=== PATIENT | female | born 1960 | race Caucasian/White ===

== ENCOUNTER 2022-01-22 08:31 | Day surgery (SDC) | payer OTHER ==
[~2022-01-22 08:31] MED LIST: CLON.5 PO; GINGER ROOT550 MG PO; HYOS.125 SL; NEBI5 PO; Papaya Enzyme1 EAC1 PO; TRAACE PO
== END 2022-01-26 23:09 | disposition home or self-care (01) ==
LOC: MOI US 08:31 → MOI MAM 09:30 → MOI US 09:30
PROVIDERS: Family Medicine
DX: C50.911 Malignant neoplasm of unspecified site of right female breast (principal); Z20.822 Contact with and (suspected) exposure to COVID-19
CPT/HCPCS: 19083; 77065; 87426; 87811; 88305; 88360; A4648

== ENCOUNTER 2022-03-03 08:08 | Day surgery (SDC) | payer OTHER ==
[~2022-03-03] VITALS: Ht 177.8 cm; Wt 97.8 kg
--- NOTE | 2022-03-03 10:59 | NUR ---
03/03/22 1059 Amanda Coto 3ML INDIGO CARMINE USED FOR POLYP REMOVAL
--- NOTE | 2022-03-03 11:46 | NUR ---
03/03/22 1146 Amanda Coto NORTRIPTYLINE RX CALLED IN BY [facility].ARCELIAB TO [facility] PER PT. REQUEST.
[2022-03-09] MEDS ORDERED: PROBIOTIC1 EA13 PO (15:38)
[2022-03-09] MEDS ORDERED: DOXE10 PO (15:38)
[2022-03-09] MEDS ORDERED: LOSA50 PO (15:38)
== END 2022-03-03 11:35 | disposition home or self-care (01) ==
LOC: ORSCSDS 08:08
PROVIDERS: Internal Medicine Gastroenterology
PROC: 0DBH8ZX Excision of Cecum, Via Natural or Artificial Opening Endoscopic, Diagnostic (ICD-10-PCS; principal; 2022-03-03 09:30)
PROC: 0DB78ZX Excision of Stomach, Pylorus, Via Natural or Artificial Opening Endoscopic, Diagnostic (ICD-10-PCS; principal; 2022-03-03 09:30)
PROC: 0DB98ZX Excision of Duodenum, Via Natural or Artificial Opening Endoscopic, Diagnostic (ICD-10-PCS; principal; 2022-03-03 09:30)
PROC: 3E0H8KZ Introduction of Other Diagnostic Substance into Lower GI, Via Natural or Artificial Opening Endoscopic (ICD-10-PCS; principal; 2022-03-03 09:30)
DX: R10.84 Generalized abdominal pain (principal); K57.30 Diverticulosis of large intestine without perforation or abscess without bleeding; R19.7 Diarrhea, unspecified; R68.81 Early satiety; K21.9 Gastro-esophageal reflux disease without esophagitis; D12.0 Benign neoplasm of cecum; K29.80 Duodenitis without bleeding; K29.70 Gastritis, unspecified, without bleeding; R10.31 Right lower quadrant pain; Z87.891 Personal history of nicotine dependence; I10 Essential (primary) hypertension; Z85.3 Personal history of malignant neoplasm of breast; Z79.899 Other long term (current) drug therapy
CPT/HCPCS: 88305; 88342; J2704; J3010; J7120

== ENCOUNTER 2022-03-12 08:51 | Day surgery (SDC) | payer OTHER ==
[~2022-03-12 08:51] MED LIST changes: +DOXE10 PO; +LOSA50 PO; +PROBIOTIC1 EA13 PO
== END 2022-03-15 23:15 | disposition home or self-care (01) ==
LOC: MOI US 08:51
DX: C50.811 Malignant neoplasm of overlapping sites of right female breast (principal)
CPT/HCPCS: 19285; 77065; A4648; G0279

== ENCOUNTER → 2023-06-17 | Outpatient (CLI) | payer MEDICARE, OTHER ==
[~2023-06-17] MED LIST changes: +CEPH250A; +DOXEPIN HCL3 MG
[2023-06-17 15:50] LABS: BASOPHILS ABSOLUTE AUTO 0.05 K/mm3 (0.00-0.23); BASOPHILS PERCENT AUTO 0 % (0-2); EOSINOPHILS ABSOLUTE AUTO 0.05 K/mm3 (0.00-0.68); EOSINOPHILS PERCENT AUTO 0 % (0-6); Hematocrit 43.7 % (33.0-51.0); Hemoglobin 15.2 g/dL (11.5-16.0); IMMATURE GRAN ABSOLUTE AUTO 0.07 K/mm3 (0.00-0.10); IMMATURE GRAN PERCENT AUTO 0 % (0-1); LYMPHOCYTES ABSOLUTE AUTO 2.51 K/mm3 (0.84-5.20); LYMPHOCYTES PERCENT AUTO 15 % (21-46); MONOCYTES ABSOLUTE AUTO 1.35 K/mm3 (0.16-1.47); MONOCYTES PERCENT AUTO 8 % (4-13); Mean Corpuscular HGB 31.3 pg (26.0-34.0); Mean Corpuscular HGB Conc 34.8 g/dL (31.5-36.5); Mean Corpuscular Volume 90 fL (80-100); Mean Platelet Volume 11.4 fL (9.1-12.4); NEUTROPHILS ABSOLUTE AUTO 12.69 K/mm3 (1.96-9.15); NEUTROPHILS PERCENT AUTO 76 % (41-73); Platelet Count 258 K/mm3 (150-400); RDW Standard Deviation 39.6 fL (35.1-46.3); Red Blood Cell Count 4.86 M/mm3 (3.80-5.20); White Blood Cell Count 16.72 K/mm3 (4.00-11.30)
[2023-06-17 16:00] LABS: Bun/Creatinine Ratio 17.5 (12.0-20.0); Calcium, Blood 9.2 mg/dL (8.5-10.1); Creatinine, Blood 0.86 mg/dL (0.40-1.00); Potassium, Blood 3.9 mmol/L (3.5-5.5)
== END | disposition home or self-care (01) ==
LOC: LAB SHORT 14:43 → LAB 14:43
PROVIDERS: Chiropractor
DX: N61.0 Mastitis without abscess (principal)
CPT/HCPCS: 80048; 85025

== ENCOUNTER 2023-06-22 13:31 | Day surgery (SDC) | payer MEDICARE, OTHER ==
[~2023-06-22] VITALS: Ht 177.8 cm; Wt 115.9 kg
[~2023-06-22 13:31] MED LIST changes: -CEPH250A; -DOXEPIN HCL3 MG
[2023-06-22] MEDS ORDERED: CEPH250A (13:51)
[2023-06-22] MEDS ORDERED: DOXEPIN HCL3 MG (13:51)
[2023-06-22 15:42] VITALS: BP 120/78
== END 2023-06-22 15:48 | disposition home or self-care (01) ==
LOC: ORSCSDS 13:31
PROVIDERS: Internal Medicine Gastroenterology
PROC: 0DJD8ZZ Inspection of Lower Intestinal Tract, Via Natural or Artificial Opening Endoscopic (ICD-10-PCS; principal; 2023-06-22 14:45)
DX: Z86.010 Personal history of colon polyps (principal); E66.9 Obesity, unspecified; I10 Essential (primary) hypertension; Z68.38 Body mass index [BMI] 38.0-38.9, adult; K57.30 Diverticulosis of large intestine without perforation or abscess without bleeding; Z79.899 Other long term (current) drug therapy
CPT/HCPCS: J0461; J2405; J2704; Q9968